=== PATIENT | male | born 1965 | race African-American/Black ===

== ENCOUNTER 2016-06-06 13:41 | Inpatient (IN) | payer OTHER ==
[2016-06-06 16:05] VITALS: BMI 21.7
--- NOTE | 2016-06-06 16:39 | HP ---
CIWA Score - CIWA Score Nausea/Vomitin Muscle Tremors: 3 Anxiety: 3 Agitation: 3 Paroxysmal Sweats: 2 Orientation: 0-Oriented Tacttile Disturbances: 2-Mild Itch/Numbness/Burn Auditory Disturbances: 2-Mild Harshness/Frighten Visual Disturbances: 2-Mild Sensitivity Headache: 2-Mild CIWA-Ar Total Score: 22 Admission ROS [facility] - HPI Chief Complaint: i need help to stop drinking alcohol and cocaine Allergies/Adverse Reactions: Allergies Allergy/AdvReac Type Severity Reaction Status Date / Time No Known Allergies Allergy Verified 06/06/16 16:55 History of Present Illness: this 50 year old male with alcohol and cocaine dependence,withdrawal symptom, last detox 04/24/16 to 04/27/16 [facility] not completed syncope previous admissions before 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 at [facility] [place] no significant period of sobriety - Ebola screening Have you traveled outside of the country in the last 21 days: No Have you had contact with anyone from an Ebola affected area: No Have you been sick,other than usual withdrawal symptoms: No Do you have a fever: No - Review of Systems Constitutional: Malaise, Night Sweats, Changes in sleep EENT: reports: Nose Congestion, Other (s/p excision and skin graft for squamoous cell carcinoma of nasal area right recurrence) Respiratory: reports: No Symptoms reported Cardiac: reports: No Symptoms Reported GI: reports: Diarrhea, Nausea, Vomiting, Abdominal cramping : reports: No Symptoms Reported Musculoskeletal: reports: Back Pain, Muscle Pain Integumentary: reports: Dryness Endocrine: reports: No Symptoms Reported Hematology: reports: No Symptoms Reported Psychiatric: reports: No Sypmtoms Reported Patient History - Patient Medical History Hx Anemia: No Hx Asthma: No Hx Chronic Obstructive Pulmonary Disease (COPD): No Hx Cancer: Yes (nasal squamous cell right nasal area s/p sugery and skin graft) Hx Cardiac Disorders: No Hx Congestive Heart Failure: No Hx Hypertension: No Hx Hypercholesterolemia: No Hx Pacemaker: No HX Cerebrovascular Accident: No Hx Seizures: No Hx Diabetes: No Hx Gastrointestinal Disorders: No Hx Liver Disease: No Hx Genitourinary Disorders: No Hx Sexually Transmitted Disorders: No Hx Renal Disease (ESRD): No Hx Thyroid Disease: No Hx Human Immunodeficiency Virus (HIV): No (last 04/25/16 negative) Hx Hepatitis C: No Hx Depression: No Hx Suicide Attempt: No Hx Bipolar Disorder: No Hx Schizophrenia: No Other Medical History: no suicidal,no homicidal - Patient Surgical History Past Surgical History: Yes Hx Neurologic Surgery: No Hx Cataract Extraction: No Hx Cardiac Surgery: No Hx Lung Surgery: No Hx Breast Surgery: No Hx Breast Biopsy: No Hx Abdominal Surgery: No Hx Appendectomy: No Hx Cholecystectomy: No Hx Genitourinary Surgery: No Hx Section: No Hx Orthopedic Surgery: No Other Surgical History: Ca of nose. Tumor removed in 2006 with skin graft Anesthesia Reaction: No - PPD History Documented Results: Positive w/o proof Results: positive PPD PPD to be Administered?: No - Smoking Cessation Smoking history: Current every day smoker Have you smoked in the past 12 months: Yes Aproximately how many cigarettes per day: 20 Hx Chewing Tobacco Use: No Initiated information on smoking cessation: Yes 'Breaking Loose' booklet given: 06/06/16 - Substance & Tx. History Hx Alcohol Use: Yes Hx Substance Use: Yes Substance Use Type: Alcohol, Cocaine Hx Substance Use Treatment: Yes ([facility] 04/24/16 to 04/27/16) - Substances Abused Alcohol Route: Oral Frequency: Daily Amount used: 05/27 VODKA/2 OF 6 PACKS OF 12 OZS OF BEER Age of first use: 17 Date of Last Use: 06/05/16 Cocaine Route: Smoking Frequency: Daily Amount used: 60$ Age of first use: 23 Date of Last Use: 06/05/16 Family Disease History - Family Disease History Family Disease History: Heart Disease: Grandparent, Other: Father (ALCOHOL, ) Admission Physical Exam [facility] - Vital Signs Vital Signs: Vital Signs - 24 hr 06/06/16 16:03 Temperature 97.7 F Pulse Rate 60 Respiratory 20 Rate Blood Pressure 120/88 - Physical General Appearance: Yes: Moderate Distress, Tremorous, Irritable, Sweating, Anxious HEENTM: Yes: Nasal Congestion, Rhinorrhea, Other (SKN GRAFT RIGHT NASAL AREA) Respiratory: Yes: Lungs Clear Neck: Yes: Within Normal Limits Breast: Yes: Within Normal Limits Cardiology: Yes: Within Normal Limits, Regular Rhythm, Regular Rate, S1, S2 Abdominal: Yes: Within Normal Limits, Normal Bowel Sounds, Non Tender, Flat, Soft Genitourinary: Yes: Within Normal Limits Back: Yes: Muscle Spasm Musculoskeletal: Yes: Back pain, Muscle Pain Extremities: Yes: Tremors Neurological: Yes: pharmacy messenger II-XII NML intact, Fully Oriented, Alert, Motor Strength 5/5 Integumentary: Yes: Dry Lymphatic: Yes: Within Normal Limits - Diagnostic (1) Alcohol dependence with uncomplicated withdrawal Current Visit: No Status: Acute (2) Nicotine dependence Current Visit: No Status: Chronic Qualifiers: Nicotine product type: cigarettes Substance use status: uncomplicated Qualified Code(s): F17.210 - Nicotine dependence, cigarettes, uncomplicated (3) Cocaine dependence Current Visit: Yes Status: Acute (4) Weight loss Current Visit: Yes Status: Acute (5) Squamous cell carcinoma of nose Current Visit: Yes Status: Acute (6) Syncope Current Visit: Yes Status: Acute (7) Positive PPD Current Visit: Yes Status: Acute Cleared for Admission [facility] - Detox or Rehab [facility] Level of Care: Medically Managed Detox Regimen/Protocol: Librium [facility] Breath Alcohol Content Breath Alcohol Content: 0 Vital Signs - Vital Signs Vital Signs Refused: No Temperature: 97.7 F Temperature Source: Oral Pulse Rate: 60 Respiratory Rate: 20 Blood Pressure: 120/88 BP Location: Left Arm - Height Height: 5 ft 7 in - Weight Weight: 139 lb Weight Measurement Method: Standing Scale Body Mass Index (BMI): 21.7 Urine Drug Screen - Test Device Lot Number: [id number] Expiration Date: 11/19/17 - Control Is Test Valid: Yes - Results Drug Screen Negative: No Urine Drug Screen Results: BALAJI-Cocaine, BZO-Benzodiazepines
[2016-06-06] MEDS ORDERED: P-EPHED 60MG/TRIPROLIDI 2.5MG TABLET PO PRN (16:55)
[2016-06-06] MEDS ORDERED: guaiFENesin/D-METHORPHAN HB 10 ML UNIT-DOSE CUPS PO PRN (16:55)
[2016-06-06] MEDS ORDERED: chlordiazePOXIDE HCL 25 MG CAPSULE PO PRN (16:55)
[2016-06-06] MEDS ORDERED: NICOTINE POLACRILEX 2 MG GUM BC PRN (16:55)
[2016-06-06] MEDS ORDERED: chlordiazePOXIDE HCL 25 MG CAPSULE PO ONE (16:55)
[2016-06-06] MEDS ORDERED: LOPERAMIDE HCL 2 MG CAPSULE PO PRN (16:55)
[2016-06-06] MEDS ORDERED: ACETAMINOPHEN 325 MG TABLET (FP) PO PRN (16:55)
[2016-06-06] MEDS ORDERED: MAGNESIUM HYDROX 2400MG/30ML ORAL SUSPENSION 30 ML CUP PO PRN (16:55)
[2016-06-06] MEDS ORDERED: IBUPROFEN 400 MG TABLET (FP) PO PRN (16:55)
[2016-06-06] MEDS ORDERED: MAGNESIUM CITRATE 300 ML BOTTLE PO PRN (16:55)
[2016-06-06] MEDS ORDERED: hydrOXYzine PAMOATE 50 MG CAPSULE (FP) PO PRN (16:55)
[2016-06-06] MEDS ORDERED: MENTHOL/PHENOL 1 EACH UD MM PRN (16:55)
--- NOTE | 2016-06-06 17:24 | PN ---
[facility] Progress Note Note: ANDERS RODRIGEZ
[2016-06-06] MEDS: chlordiazePOXIDE HCL 25 MG CAPSULE PO SCH ×2 (17:45→22:21)
[2016-06-06 19:58] LABS: URINE APPEARANCE CLEAR; URINE BILIRUBIN NEGATIVE (NEGATIVE); URINE BLOOD NEGATIVE (NEGATIVE); URINE COLOR LTYELLOW; URINE GLUCOSE (UA) NEGATIVE (NEGATIVE); URINE KETONE NEGATIVE (NEGATIVE); URINE NITRITE NEGATIVE (NEGATIVE); URINE PROTEIN NEGATIVE (NEGATIVE); URINE UROBILINOGEN NEGATIVE E.U./dl (0.2-1.0)
[2016-06-06 19:59] LABS: URINE LEUK ESTERASE TRACE (NEGATIVE)
[2016-06-06 20:00] LABS: URINE MUCUS RARE; URINE RBC 1 /hpf (0-3); URINE WBC 7 /hpf (3-5)
[2016-06-06] MEDS: THIAMINE HCL 100 MG TABLET (FP) PO SCH (22:21)
[2016-06-06] MEDS: diphenhydrAMINE HCL 50 MG CAPSULE PO PRN (22:23)
[2016-06-07] MEDS: chlordiazePOXIDE HCL 25 MG CAPSULE PO SCH ×4 (05:31→22:26)
--- NOTE | 2016-06-07 09:23 | EKG ---
Test Reason : Blood Pressure : / mmHG Vent. Rate : 056 BPM Atrial Rate : 056 BPM P-R Int : 156 ms QRS Dur : 098 ms QT Int : 428 ms P-R-T Axes : 060 077 063 degrees QTc Int : 413 ms SINUS BRADYCARDIA MODERATE VOLTAGE CRITERIA FOR LVH, MAY BE NORMAL VARIANT BORDERLINE ECG NO PREVIOUS ECGS AVAILABLE Confirmed by VILMA COELHO MD ([id number]) on 06/07/2016 9:23:00 AM Referred By: Confirmed By:VILMA COELHO MD
[2016-06-07 10:06] LABS: ALBUMIN 3.2 g/dl (3.4-5.0); ALK PHOS 87 U/L (45-117); ANION GAP 8 (8-16); BILIRUBIN,TOTAL 0.8 mg/dL (0.2-1.0); CALCIUM 8.4 mg/dL (8.5-10.1); CO2 25 mmol/L (21-32); CREATININE 0.9 mg/dL (0.7-1.3); GLUCOSE,RANDOM 81 mg/dL (74-106); SGOT/AST 44 U/L (15-37); SGPT/ALT 32 U/L (12-78); TOT PROT 6.1 g/dl (6.4-8.2)
[2016-06-07] MEDS: PRENATAL VITAMINS W/ FOLIC ACID TABLET (FP) PO SCH (10:19)
[2016-06-07 10:36] LABS: MCH 33.1 pg (25.7-33.7); MCHC 33.2 g/dl (32.0-35.9); MEAN CELL VOLUME 99.4 fl (80-96); MEAN PLT VOLUME 8.3 fl (7.5-11.1); PLATELET COUNT 275 K/MM3 (134-434); RDW 12.6 % (11.9-15.9); WHITE BLOOD COUNT 9.8 K/mm3 (4.0-10.0)
--- NOTE | 2016-06-07 14:09 | PN ---
S CIWA - CIWA Score Nausea/Vomitin-No Nausea/No Vomiting Muscle Tremors: 3 Anxiety: 3 Agitation: 4-Moderately Restless Paroxysmal Sweats: 3 Orientation: 0-Oriented Tacttile Disturbances: 0-None Auditory Disturbances: 0-None Visual Disturbances: 0-None Headache: 0-None Present CIWA-Ar Total Score: 13 BHS Progress Note (SOAP) Subjective: ANXIETY.TREMORS,SWEATING,INTERRUPTED SLEEP,RESTLESS. Objective: 06/07/16 14:07 Vital Signs - 8 hr 06/07/16 06/07/16 06:45 10:34 Temperature 97.6 F 97.4 F L Pulse Rate 83 78 Respiratory 18 18 Rate Blood Pressure 149/87 114/76 Laboratory Tests 06/06/16 06/07/16 06/07/16 19:30 08:00 08:00 WBC 9.8 RBC 4.02 Hgb 13.3 Hct 40.0 MCV 99.4 H MCHC 33.2 RDW 12.6 Plt Count 275 MPV 8.3 Sodium 143 Potassium 3.4 L Chloride 110 H Carbon Dioxide 25 Anion Gap 8 BUN 10 Creatinine 0.9 Creat Clearance w eGFR > 60 Random Glucose 81 D Calcium 8.4 L Total Bilirubin 0.8 D AST 44 H ALT 32 Alkaline Phosphatase 87 D Total Protein 6.1 L Albumin 3.2 L Urine Color Ltyellow Urine Appearance Clear Urine pH 6.0 Ur Specific [place] 1.019 Urine Protein Negative Urine Glucose (UA) Negative Urine Ketones Negative Urine Blood Negative Urine Nitrite Negative Urine Bilirubin Negative Urine Urobilinogen Negative Ur Leukocyte Esterase Trace H Urine RBC 1 Urine WBC 7 Ur Epithelial Cells Rare Urine Mucus Rare RPR Titer 06/07/16 08:00 WBC RBC Hgb Hct MCV MCHC RDW Plt Count MPV Sodium Potassium Chloride Carbon Dioxide Anion Gap BUN Creatinine Creat Clearance w eGFR Random Glucose Calcium Total Bilirubin AST ALT Alkaline Phosphatase Total Protein Albumin Urine Color Urine Appearance Urine pH Ur Specific [place] Urine Protein Urine Glucose (UA) Urine Ketones Urine Blood Urine Nitrite Urine Bilirubin Urine Urobilinogen Ur Leukocyte Esterase Urine RBC Urine WBC Ur Epithelial Cells Urine Mucus RPR Titer Nonreactive LABS NOTED,K-DUR ORDERED Assessment: 06/07/16 14:08 WITHDRAWAL SX. HYPOKALEMIA Plan: CONTINUE DETOX
[2016-06-07] MEDS ORDERED: POTASSIUM CHLORIDE TABS 20 MEQ TABLET.ER (FP) PO ONE (14:23)
[2016-06-07] MEDS: MAG HYDROX/AL HYDROX/SIMETH 30 ML UNIT-DOSE CUP PO PRN (16:40)
[2016-06-07] MEDS: diphenhydrAMINE HCL 50 MG CAPSULE PO PRN (22:27)
[2016-06-07] MEDS: THIAMINE HCL 100 MG TABLET (FP) PO SCH (22:27)
[2016-06-07] MEDS: POTASSIUM CHLORIDE TABS 20 MEQ TABLET.ER (FP) PO SCH (22:27)
[2016-06-08] MEDS: chlordiazePOXIDE HCL 25 MG CAPSULE PO SCH ×2 (05:36→10:44)
[2016-06-08 09:31] VITALS: PULSE 70
--- NOTE | 2016-06-08 10:18 | PN ---
[facility] CIWA - CIWA Score Nausea/Vomitin-No Nausea/No Vomiting Muscle Tremors: 4-Moderate,w/Arms Extend Anxiety: 4-Mod. Anxious/Guarded Agitation: 4-Moderately Restless Paroxysmal Sweats: 1-Minimal Palms Moist Orientation: 0-Oriented Tacttile Disturbances: 3-Moderate Itch/Numb/Burn Auditory Disturbances: 0-None Visual Disturbances: 0-None Headache: 0-None Present CIWA-Ar Total Score: 16 S Progress Note (SOAP) Subjective: ANXIETY,CHILLS,FATIGUE. Objective: 06/08/16 10:17 Vital Signs Temperature 97.0 F L 06/08/16 09:31 Pulse Rate 70 06/08/16 09:31 Respiratory Rate 20 06/08/16 09:31 Blood Pressure 104/75 06/08/16 09:31 O2 Sat by Pulse Oximetry (%) Laboratory Last Values WBC 9.8 K/mm3 (4.0-10.0) 06/07/16 08:00 RBC 4.02 M/mm3 (4.00-5.60) 06/07/16 08:00 Hgb 13.3 GM/dL (11.7-16.9) 06/07/16 08:00 Hct 40.0 % (35.4-49) 06/07/16 08:00 MCV 99.4 fl (80-96) H 06/07/16 08:00 MCHC 33.2 g/dl (32.0-35.9) 06/07/16 08:00 RDW 12.6 % (11.9-15.9) 06/07/16 08:00 Plt Count 275 K/MM3 (134-434) 06/07/16 08:00 MPV 8.3 fl (7.5-11.1) 06/07/16 08:00 Sodium 143 mmol/L (136-145) 06/07/16 08:00 Potassium 3.4 mmol/L (3.5-5.1) L 06/07/16 08:00 Chloride 110 mmol/L (98-107) H 06/07/16 08:00 Carbon Dioxide 25 mmol/L (21-32) 06/07/16 08:00 Anion Gap 8 (8-16) 06/07/16 08:00 BUN 10 mg/dL (7-18) 06/07/16 08:00 Creatinine 0.9 mg/dL (0.7-1.3) 06/07/16 08:00 Creat Clearance w eGFR > 60 (>60) 06/07/16 08:00 Random Glucose 81 mg/dL (74-106) D 06/07/16 08:00 Calcium 8.4 mg/dL (8.5-10.1) L 06/07/16 08:00 Total Bilirubin 0.8 mg/dL (0.2-1.0) D 06/07/16 08:00 AST 44 U/L (15-37) H 06/07/16 08:00 ALT 32 U/L (12-78) 06/07/16 08:00 Alkaline Phosphatase 87 U/L (45-117) D 06/07/16 08:00 Total Protein 6.1 g/dl (6.4-8.2) L 06/07/16 08:00 Albumin 3.2 g/dl (3.4-5.0) L 06/07/16 08:00 Urine Color Ltyellow 06/06/16 19:30 Urine Appearance Clear 06/06/16 19:30 Urine pH 6.0 (5.0-8.0) 06/06/16 19:30 Ur Specific [place] 1.019 (1.001-1.035) 06/06/16 19:30 Urine Protein Negative (NEGATIVE) 06/06/16 19:30 Urine Glucose (UA) Negative (NEGATIVE) 06/06/16 19:30 Urine Ketones Negative (NEGATIVE) 06/06/16 19:30 Urine Blood Negative (NEGATIVE) 06/06/16 19:30 Urine Nitrite Negative (NEGATIVE) 06/06/16 19:30 Urine Bilirubin Negative (NEGATIVE) 06/06/16 19:30 Urine Urobilinogen Negative E.U./dl (0.2-1.0) 06/06/16 19:30 Ur Leukocyte Esterase Trace (NEGATIVE) H 06/06/16 19:30 Urine RBC 1 /hpf (0-3) 06/06/16 19:30 Urine WBC 7 /hpf (3-5) 06/06/16 19:30 Ur Epithelial Cells Rare /hpf (FEW) 06/06/16 19:30 Urine Mucus Rare 06/06/16 19:30 RPR Titer Nonreactive (NONREACTIVE) 06/07/16 08:00 LABS NOTED Assessment: 06/08/16 10:18 WITHDRAWAL SX BORDERLINE HYPOKALEMIA Plan: CONTINUE DETOX
[2016-06-08] MEDS: PRENATAL VITAMINS W/ FOLIC ACID TABLET (FP) PO SCH (10:43)
[2016-06-08] MEDS: POTASSIUM CHLORIDE TABS 20 MEQ TABLET.ER (FP) PO SCH (10:44)
[2016-06-08] MEDS: MAG HYDROX/AL HYDROX/SIMETH 30 ML UNIT-DOSE CUP PO PRN (10:55)
[2016-06-08 14:10] VITALS: BP 108/73; TEMP 95.9
--- NOTE | 2016-06-08 15:20 | DS ---
[facility] Detox Discharge Summary Admission Date: 06/06/16 Discharge Date: 06/08/16 - History Present History: Alcohol Dependence, Cocaine Dependence Additional Comments: PT DECLINED TO COMPLETE DETOX STATING HIS BEST FRIEND AND IS TOMORROW AND HAS TO LEAVE RIGHT AWAY TODAY. PT DECLINED ALL SUGGESTIONS/ COUNSELLING. ALERT O X 3. NAD. PT SIGNED OUT AMA. Pertinent Past History: SQUAMOUS CELL CARCINOMA OF NOSE; S/P SX - Physical Exam Results Vital Signs: Vital Signs Temperature 95.9 F L 06/08/16 14:06 Pulse Rate 70 06/08/16 14:06 Respiratory Rate 18 06/08/16 14:06 Blood Pressure 108/73 06/08/16 14:06 O2 Sat by Pulse Oximetry (%) Pertinent Admission Physical Exam Findings: WITHDRAWAL SX - Medication Discharge Medications: Ambulatory Orders NK [No Known Home Medication] 04/24/16 - Diagnosis (1) Cocaine dependence Status: Acute Qualifiers: Substance use status: uncomplicated Qualified Code(s): F14.20 - Cocaine dependence, uncomplicated (2) Positive PPD Status: Chronic (3) Squamous cell carcinoma of nose Status: Resolved (4) Syncope Status: Suspected Qualifiers: Syncope type: unspecified Qualified Code(s): R55 - Syncope and collapse (5) Alcohol dependence with uncomplicated withdrawal Status: Acute (6) Nicotine dependence Status: Chronic Qualifiers: Nicotine product type: cigarettes Substance use status: uncomplicated Qualified Code(s): F17.210 - Nicotine dependence, cigarettes, uncomplicated - AMA Did Patient Leave Against Medical Advice: Yes (AMA)
[2016-06-08] MEDS ORDERED: chlordiazePOXIDE 5 MG CAPSULE PO SCH (17:00)
[2016-06-09] MEDS ORDERED: chlordiazePOXIDE HCL 10 MG CAPSULE PO SCH (17:00)
== END 2016-06-08 12:07 | disposition left against medical advice (07) | DRG 770 ==
LOC: YASAS 13:41 → Y3N 16:43
PROVIDERS: ADMIT Internal Medicine; ATTEND Internal Medicine
PROC: HZ2ZZZZ Detoxification Services for Substance Abuse Treatment (ICD-10-PCS; principal; 2016-06-06)
DX: F10.230 Alcohol dependence with withdrawal, uncomplicated (principal); F14.20 Cocaine dependence, uncomplicated; F17.210 Nicotine dependence, cigarettes, uncomplicated; E87.6 Hypokalemia; R76.11 Nonspecific reaction to tuberculin skin test without active tuberculosis; Z85.828 Personal history of other malignant neoplasm of skin; Z86.79 Personal history of other diseases of the circulatory system; Z87.898 Personal history of other specified conditions
CPT/HCPCS: 36415; 71020-TC; 80053; 81003; 81015; 85027; 86593; 93005; 93010

== ENCOUNTER 2018-04-27 13:21 | Inpatient (IN) | payer OTHER ==
[2018-04-27 13:48] VITALS: BMI 22.2
--- NOTE | 2018-04-27 15:19 | HP ---
CIWA Score Nausea/Vomitin Muscle Tremors: 1-None Visible, but [place] Anxiety: 3 Agitation: 3 Paroxysmal Sweats: 2 Orientation: 0-Oriented Tacttile Disturbances: 0-None Auditory Disturbances: 0-None Visual Disturbances: 0-None Headache: 0-None Present CIWA-Ar Total Score: 12 - Admission Criteria [facility] Guidelines: Admission for Medically Managed Detox: Requires at least one of the followin. CIWA greater than 12 2. Seizures within the past 24 hours 3. Delirium tremens within the past 24 hours 4. Hallucinations within the past 24 hours 5. Acute intervention needed for co occurring medical disorder 6. Acute intervention needed for co occurring psychiatric disorder 7. Severe withdrawal that cannot be handled at a lower level of care (continued vomiting, continued diarrhea, abnormal vital signs) requiring intravenous medication and/or fluids 8. Admission ROS [facility] Chief Complaint: ETOH WITHDRAWAL SX Allergies/Adverse Reactions: Allergies Allergy/AdvReac Type Severity Reaction Status Date / Time No Known Allergies Allergy Verified 06/06/16 16:55 History of Present Illness: PATIENT PRESENTS WITH ETOH WITHDRAWAL SX AND CRACK/COCAINE DEPENDENCE. PATIENT ADMITTED TO DETOX THIS YEAR AT [facility] IN 12/2017. PATIENT STARTED DRINKING AT AGE 18, DRINKS 12 BEERS AND 1 PINT OF VODKA DAILY. ALSO SMOKES 100 DOLLARS OF CRACK/DAY. LAST TIME HE USED BOTH SUBSTANCES WAS 3AM THIS MORNING. PATIENT DENIES SEIZURES, FALLS. +BLACKOUTS AND DRINKS UPON AWAKENING. PATIENT PMH INCLUDES NASAL CANCER IN 2006. DENIES SI/HI AND SUICIDE ATTEMPTS. Exam Limitations: No Limitations - Ebola screening Have you traveled outside of the country in the last 21 days: No Have you had contact with anyone from an Ebola affected area: No Have you been sick,other than usual withdrawal symptoms: No Do you have a fever: No - Review of Systems Constitutional: Chills, Night Sweats, Unexplained wgt Loss EENT: reports: Recent change in vision Respiratory: reports: No Symptoms reported Cardiac: reports: No Symptoms Reported GI: reports: Diarrhea, Poor Fluid Intake, Abdominal cramping : reports: No Symptoms Reported Musculoskeletal: reports: No Symptoms Reported Integumentary: reports: Sweating Neuro: reports: Numbness, Tingling, Tremors Endocrine: reports: Unexplained Weight Loss Hematology: reports: No Symptoms Reported Psychiatric: reports: Orientated x3 Patient History - Patient Medical History Hx Anemia: No Hx Asthma: No Hx Chronic Obstructive Pulmonary Disease (COPD): No Hx Cancer: Yes (nasal squamous cell right nasal area s/p sugery and skin graft) Hx Cardiac Disorders: No Hx Congestive Heart Failure: No Hx Hypertension: No Hx Hypercholesterolemia: No Hx Pacemaker: No HX Cerebrovascular Accident: No Hx Seizures: No Hx Dementia: No Hx Diabetes: No Hx Gastrointestinal Disorders: No Hx Liver Disease: No Hx Genitourinary Disorders: No Hx Sexually Transmitted Disorders: No Hx Renal Disease (ESRD): No Hx Thyroid Disease: No Hx Human Immunodeficiency Virus (HIV): No (last 04/25/16 negative) Hx Hepatitis C: No Hx Depression: No Hx Suicide Attempt: No Hx Bipolar Disorder: No Hx Schizophrenia: No - Patient Surgical History Past Surgical History: Yes Hx Neurologic Surgery: No Hx Cataract Extraction: No Hx Cardiac Surgery: No Hx Lung Surgery: No Hx Breast Surgery: No Hx Breast Biopsy: No Hx Abdominal Surgery: No Hx Appendectomy: No Hx Cholecystectomy: No Hx Genitourinary Surgery: No Hx Orthopedic Surgery: No Other Surgical History: Ca of nose. Tumor removed in 2006 with skin graft Anesthesia Reaction: No - PPD History Previous Implant?: Yes Results: positive PPD PPD to be Administered?: No - Smoking Cessation Smoking history: Current every day smoker Have you smoked in the past 12 months: Yes Aproximately how many cigarettes per day: 20 Hx Chewing Tobacco Use: No Initiated information on smoking cessation: Yes 'Breaking Loose' booklet given: 04/27/18 - Substance & Tx. History Hx Alcohol Use: Yes Hx Substance Use: Yes Substance Use Type: Alcohol, Cocaine - Substances Abused Alcohol Route: Oral Frequency: Daily Amount used: 1 PINT, 12 BEERS Age of first use: 18 Date of Last Use: 04/27/18 Cocaine Route: Smoking Frequency: Daily Amount used: 100/DAY Age of first use: 18 Date of Last Use: 04/27/18 Family Disease History - Family Disease History Family Disease History: Heart Disease: Grandparent, Other: Father (ALCOHOL, ) Admission Physical Exam [facility] - Vital Signs Vital Signs: Vital Signs - 24 hr 04/27/18 13:47 Temperature 98.0 F Pulse Rate 81 Respiratory 18 Rate Blood Pressure 118/74 - Physical General Appearance: Yes: Appropriately Dressed, Alcohol on Breath, Tremorous, Sweating, Anxious HEENTM: Yes: Hearing grossly Normal, Normal ENT Inspection, Normocephalic, Normal Voice, BUDDY, Pharynx Normal Respiratory: Yes: Chest Non-Tender, Lungs Clear, Normal Breath Sounds, No Respiratory Distress, No Accessory Muscle Use Neck: Yes: No masses,lesions,Nodules, Supple, Trachea in good position Breast: Yes: Breast Exam Deferred Cardiology: Yes: Regular Rhythm, Regular Rate, S1, S2 Abdominal: Yes: Normal Bowel Sounds, Non Tender, Soft Genitourinary: Yes: Within Normal Limits Back: Yes: Normal Inspection Musculoskeletal: Yes: full range of Motion, Gait Steady Extremities: Yes: Normal Inspection, Normal Range of Motion, Non-Tender, Tremors Neurological: Yes: microfilm equipment inspector II-XII NML intact, Fully Oriented, Alert, Motor Strength 5/5, Normal Mood/Affect, Normal Response Integumentary: Yes: Normal Color, Dry, Warm Lymphatic: Yes: Within Normal Limits - Diagnostic (1) Alcohol dependence with uncomplicated withdrawal Current Visit: No Status: Acute (2) Cocaine abuse Current Visit: No Status: Chronic (3) Nicotine dependence Current Visit: Yes Status: Chronic Qualifiers: Nicotine product type: cigarettes Substance use status: uncomplicated Qualified Code(s): F17.210 - Nicotine dependence, cigarettes, uncomplicated (4) Positive PPD Current Visit: Yes Status: Chronic Cleared for Admission [facility] - Detox or Rehab [facility] Level of Care: Medically Managed Detox Regimen/Protocol: Librium [facility] Breath Alcohol Content Breath Alcohol Content: 0.004 Vital Signs - Vital Signs Vital Signs Refused: No Temperature: 98.0 F Temperature Source: Oral Pulse Rate: 81 Respiratory Rate: 18 Blood Pressure: 118/74 BP Location: Left Arm Blood Pressure Position: Sitting - Height Height: 5 ft 6 in - Weight Weight: 138 lb Weight Measurement Method: Standing Scale Body Mass Index (BMI): 22.2 - Bowel Function Bowel Movement: Yes Urine Drug Screen - Results Drug Screen Negative: No Urine Drug Screen Results: BALAJI-Cocaine
[2018-04-27] MEDS ORDERED: P-EPHED 60MG/TRIPROLIDI 2.5MG TABLET PO PRN (15:31)
[2018-04-27] MEDS ORDERED: MAGNESIUM HYDROX 2400MG/30ML ORAL SUSPENSION 30 ML CUP PO PRN (15:31)
[2018-04-27] MEDS ORDERED: ACETAMINOPHEN 325 MG TABLET (FP) PO PRN (15:31)
[2018-04-27] MEDS ORDERED: hydrOXYzine PAMOATE 50 MG CAPSULE (FP) PO PRN (15:31)
[2018-04-27] MEDS ORDERED: LOPERAMIDE HCL 2 MG CAPSULE PO PRN (15:31)
[2018-04-27] MEDS ORDERED: MAG HYDROX/AL HYDROX/SIMETH 30 ML UNIT-DOSE CUP PO PRN (15:31)
[2018-04-27] MEDS ORDERED: NICOTINE POLACRILEX 2 MG GUM BC PRN (15:31)
[2018-04-27] MEDS ORDERED: IBUPROFEN 400 MG TABLET (FP) PO PRN (15:31)
[2018-04-27] MEDS ORDERED: MENTHOL/PHENOL 1 EACH UD MM PRN (15:31)
[2018-04-27] MEDS ORDERED: MAGNESIUM CITRATE 300 ML BOTTLE PO PRN (15:31)
[2018-04-27] MEDS ORDERED: guaiFENesin/D-METHORPHAN HB 10 ML UNIT-DOSE CUPS PO PRN (15:31)
[2018-04-27] MEDS ORDERED: chlordiazePOXIDE HCL 25 MG CAPSULE PO PRN (15:33)
[2018-04-27] MEDS: chlordiazePOXIDE HCL 25 MG CAPSULE PO SCH ×2 (17:51→22:20)
[2018-04-27] MEDS ORDERED: MELATONIN 5 MG TABLETS PO PRN (22:00)
[2018-04-27] MEDS: THIAMINE HCL 100 MG TABLET (FP) PO SCH (22:19)
[2018-04-27 22:47] LABS: URINE APPEARANCE SLCLOUDY; URINE BILIRUBIN NEGATIVE (<2.0 mg/dL); URINE COLOR YELLOW; URINE GLUCOSE (UA) NEGATIVE (NEGATIVE); URINE KETONE NEGATIVE (NEGATIVE); URINE LEUK ESTERASE 3+ (NEGATIVE); URINE NITRITE NEGATIVE (NEGATIVE); URINE PROTEIN NEGATIVE (NEGATIVE); URINE UROBILINOGEN NEGATIVE mg/dL (0.2-1.0)
[2018-04-27 22:52] LABS: EPI CELLS RARE /HPF (FEW); URINE MUCUS RARE
[2018-04-28] MEDS: chlordiazePOXIDE HCL 25 MG CAPSULE PO SCH ×4 (07:10→22:27)
[2018-04-28 10:38] LABS: HEMATOCRIT 39.7 % (35.4-49); HEMOGLOBIN 13.7 GM/dL (11.7-16.9); MCH 33.5 pg (25.7-33.7); MCHC 34.4 g/dl (32.0-35.9); MEAN CELL VOLUME 97.6 fl (80-96); MEAN PLT VOLUME 8.2 fl (7.5-11.1); PLATELET COUNT 252 K/MM3 (134-434); RBC 4.07 M/mm3 (4.00-5.60); RDW 12.5 % (11.9-15.9); WHITE BLOOD COUNT 7.5 K/mm3 (4.0-10.0)
[2018-04-28 11:18] LABS: ALBUMIN 3.2 g/dl (3.4-5.0); ALK PHOS 68 U/L (45-117); ANION GAP 9 MMOL/L (8-16); BILIRUBIN,TOTAL 0.6 mg/dL (0.2-1); BLOOD UREA NITROGEN 13 mg/dL (7-18); CALCIUM 8.4 mg/dL (8.5-10.1); CHLORIDE 110 mmol/L (98-107); CO2 23 mmol/L (21-32); CREATININE 0.9 mg/dL (0.55-1.3); GLUCOSE,RANDOM 82 mg/dL (74-106); POTASSIUM 3.8 mmol/L (3.5-5.1); SGOT/AST 34 U/L (15-37); SGPT/ALT 33 U/L (13-61); SODIUM 142 mmol/L (136-145); TOT PROT 6.2 g/dl (6.4-8.2)
--- NOTE | 2018-04-28 11:22 | PN ---
S CIWA - CIWA Score Nausea/Vomitin-No Nausea/No Vomiting Muscle Tremors: 4-Moderate,w/Arms Extend Anxiety: 3 Agitation: 3 Paroxysmal Sweats: 3 Orientation: 0-Oriented Tacttile Disturbances: 0-None Auditory Disturbances: 0-None Visual Disturbances: 0-None Headache: 0-None Present CIWA-Ar Total Score: 13 BHS Progress Note (SOAP) Subjective: tired sweats chills irritable Objective: 04/28/18 11:21 Vital Signs Temperature 97.5 F L 04/28/18 06:00 Pulse Rate 65 04/28/18 06:00 Respiratory Rate 18 04/28/18 06:00 Blood Pressure 122/56 L 04/28/18 06:00 O2 Sat by Pulse Oximetry (%) Laboratory Tests 04/27/18 04/28/18 04/28/18 12:45 07:00 07:00 WBC 7.5 RBC 4.07 Hgb 13.7 Hct 39.7 MCV 97.6 H MCH 33.5 MCHC 34.4 RDW 12.5 Plt Count 252 MPV 8.2 Sodium 142 Potassium 3.8 Chloride 110 H Carbon Dioxide 23 Anion Gap 9 BUN 13 Creatinine 0.9 Creat Clearance w eGFR > 60 Random Glucose 82 Calcium 8.4 L Total Bilirubin 0.6 AST 34 ALT 33 Alkaline Phosphatase 68 Total Protein 6.2 L Albumin 3.2 L Urine Color Yellow Urine Appearance Slcloudy Urine pH 5.0 Ur Specific [place] 1.021 Urine Protein Negative Urine Glucose (UA) Negative Urine Ketones Negative Urine Blood Negative Urine Nitrite Negative Urine Bilirubin Negative Urine Urobilinogen Negative Ur Leukocyte Esterase 3+ H D Urine WBC (Auto) 25 Urine RBC (Auto) 2 Ur Epithelial Cells Rare Urine Mucus Rare aaox3 ambulating no acute distress repeat u/a Assessment: 04/28/18 11:21 withdrawal sx Plan: continue detox increase fluids repeated u/a pending
--- NOTE | 2018-04-28 11:39 | EKG ---
Test Reason : Blood Pressure : / mmHG Vent. Rate : 075 BPM Atrial Rate : 075 BPM P-R Int : 170 ms QRS Dur : 098 ms QT Int : 378 ms P-R-T Axes : 071 074 062 degrees QTc Int : 422 ms NORMAL SINUS RHYTHM NORMAL ECG WHEN COMPARED WITH ECG OF 06-JUN-2016 17:54, NO SIGNIFICANT CHANGE WAS FOUND Confirmed by DIANELYS ONEAL MD ([id number]) on 04/28/2018 11:38:29 AM Referred By: Confirmed By:DIANELYS ONEAL MD
[2018-04-28] MEDS: PRENATAL VITAMINS W/ FOLIC ACID TABLET (FP) PO SCH (12:46)
[2018-04-28] MEDS: NICOTINE 21 MG/24 HOURS TOPICAL PATCH TD SCH (12:46)
[2018-04-28] MEDS: THIAMINE HCL 100 MG TABLET (FP) PO SCH (22:27)
[2018-04-29 06:59] VITALS: TEMP 97.7
[2018-04-29] MEDS: chlordiazePOXIDE HCL 25 MG CAPSULE PO SCH ×2 (07:39→11:39)
[2018-04-29 09:28] VITALS: BP 109/78; PULSE 68
[2018-04-29] MEDS: NICOTINE 21 MG/24 HOURS TOPICAL PATCH TD SCH (11:39)
[2018-04-29] MEDS: PRENATAL VITAMINS W/ FOLIC ACID TABLET (FP) PO SCH (11:39)
--- NOTE | 2018-04-29 14:41 | DS ---
[facility] Detox Discharge Summary Admission Date: 04/27/18 Discharge Date: 04/29/18 - History Present History: Alcohol Dependence Pertinent Past History: Nasal basal cell carcinoma - Physical Exam Results Vital Signs: Vital Signs Temperature 97.7 F 04/29/18 09:27 Pulse Rate 68 04/29/18 09:27 Respiratory Rate 16 04/29/18 09:27 Blood Pressure 109/78 04/29/18 09:27 O2 Sat by Pulse Oximetry (%) Pertinent Admission Physical Exam Findings: Withdrawal sx Laboratory Last Values WBC 7.5 K/mm3 (4.0-10.0) 04/28/18 07:00 RBC 4.07 M/mm3 (4.00-5.60) 04/28/18 07:00 Hgb 13.7 GM/dL (11.7-16.9) 04/28/18 07:00 Hct 39.7 % (35.4-49) 04/28/18 07:00 MCV 97.6 fl (80-96) H 04/28/18 07:00 MCH 33.5 pg (25.7-33.7) 04/28/18 07:00 MCHC 34.4 g/dl (32.0-35.9) 04/28/18 07:00 RDW 12.5 % (11.9-15.9) 04/28/18 07:00 Plt Count 252 K/MM3 (134-434) 04/28/18 07:00 MPV 8.2 fl (7.5-11.1) 04/28/18 07:00 Sodium 142 mmol/L (136-145) 04/28/18 07:00 Potassium 3.8 mmol/L (3.5-5.1) 04/28/18 07:00 Chloride 110 mmol/L (98-107) H 04/28/18 07:00 Carbon Dioxide 23 mmol/L (21-32) 04/28/18 07:00 Anion Gap 9 MMOL/L (8-16) 04/28/18 07:00 BUN 13 mg/dL (7-18) 04/28/18 07:00 Creatinine 0.9 mg/dL (0.55-1.3) 04/28/18 07:00 Creat Clearance w eGFR > 60 (>60) 04/28/18 07:00 Random Glucose 82 mg/dL (74-106) 04/28/18 07:00 Calcium 8.4 mg/dL (8.5-10.1) L 04/28/18 07:00 Total Bilirubin 0.6 mg/dL (0.2-1) 04/28/18 07:00 AST 34 U/L (15-37) 04/28/18 07:00 ALT 33 U/L (13-61) 04/28/18 07:00 Alkaline Phosphatase 68 U/L (45-117) 04/28/18 07:00 Total Protein 6.2 g/dl (6.4-8.2) L 04/28/18 07:00 Albumin 3.2 g/dl (3.4-5.0) L 04/28/18 07:00 Urine Color Yellow 04/27/18 12:45 Urine Appearance Slcloudy 04/27/18 12:45 Urine pH 5.0 (5.0-8.0) 04/27/18 12:45 Ur Specific Sesser 1.021 (1.010-1.035) 04/27/18 12:45 Urine Protein Negative (NEGATIVE) 04/27/18 12:45 Urine Glucose (UA) Negative (NEGATIVE) 04/27/18 12:45 Urine Ketones Negative (NEGATIVE) 04/27/18 12:45 Urine Blood Negative (NEGATIVE) 04/27/18 12:45 Urine Nitrite Negative (NEGATIVE) 04/27/18 12:45 Urine Bilirubin Negative (<2.0 mg/dL) 04/27/18 12:45 Urine Urobilinogen Negative mg/dL (0.2-1.0) 04/27/18 12:45 Ur Leukocyte Esterase 3+ (NEGATIVE) H D 04/27/18 12:45 Urine WBC (Auto) 25 /hpf (3-5) 04/27/18 12:45 Urine RBC (Auto) 2 /hpf (0-3) 04/27/18 12:45 Ur Epithelial Cells Rare /HPF (FEW) 04/27/18 12:45 Urine Mucus Rare 04/27/18 12:45 RPR Titer Nonreactive (NONREACTIVE) 04/28/18 07:00 Labs noted - Medication Discharge Medications: Ambulatory Orders NK [No Known Home Medication] 04/24/16 - Diagnosis (1) Nicotine dependence Status: Chronic Qualifiers: Nicotine product type: cigarettes Substance use status: uncomplicated Qualified Code(s): F17.210 - Nicotine dependence, cigarettes, uncomplicated (2) Alcohol dependence with uncomplicated withdrawal Status: Acute (3) Cocaine dependence Status: Acute Qualifiers: Substance use status: uncomplicated Qualified Code(s): F14.20 - Cocaine dependence, uncomplicated - AMA Did Patient Leave Against Medical Advice: Yes
[2018-04-29] MEDS ORDERED: chlordiazePOXIDE 5 MG CAPSULE PO SCH (17:00)
[2018-04-30] MEDS ORDERED: chlordiazePOXIDE HCL 10 MG CAPSULE PO SCH (17:00)
== END 2018-04-29 10:40 | disposition left against medical advice (07) | DRG 770 ==
LOC: YASAS 13:21 → Y6N 16:45
PROC: HZ2ZZZZ Detoxification Services for Substance Abuse Treatment (ICD-10-PCS; principal; 2018-04-27)
DX: F10.230 Alcohol dependence with withdrawal, uncomplicated (principal); F14.20 Cocaine dependence, uncomplicated; F17.213 Nicotine dependence, cigarettes, with withdrawal; R76.11 Nonspecific reaction to tuberculin skin test without active tuberculosis; Z85.828 Personal history of other malignant neoplasm of skin; Z94.5 Skin transplant status
CPT/HCPCS: 36415; 71046-TC-FY; 80053; 81003; 81015; 85027; 86593; 93005; 93010

== ENCOUNTER 2022-08-17 12:52 | Inpatient (IN) | payer OTHER ==
[2022-08-17 13:39] VITALS: BMI 19.7
[2022-08-17] MEDS ORDERED: BENZONATATE 200 MG CAPSULE PO PRN (14:27)
[2022-08-17] MEDS ORDERED: ACETAMINOPHEN 325 MG TABLET (FP) PO PRN (14:27)
[2022-08-17] MEDS ORDERED: IBUPROFEN 600 MG TABLET (FP) PO PRN (14:27)
[2022-08-17] MEDS ORDERED: LOPERAMIDE HCL 2 MG CAPSULE PO PRN (14:27)
[2022-08-17] MEDS ORDERED: MAGNESIUM HYDROX 2400MG/30ML ORAL SUSPENSION 30 ML CUP PO PRN (14:27)
[2022-08-17] MEDS ORDERED: NICOTINE POLACRILEX 2 MG GUM BUC PRN (14:27)
[2022-08-17] MEDS ORDERED: ONDANSETRON *ODT* 4 MG TABLET SL PRN (14:27)
[2022-08-17] MEDS ORDERED: guaiFENesin 600 MG TABLET.ER (FP) PO PRN (14:27)
[2022-08-17] MEDS ORDERED: DICYCLOMINE HCL 10 MG CAPSULE PO PRN (14:27)
[2022-08-17] MEDS ORDERED: BISMUTH SUBSALICYLATE 262 MG/15 ML BTL PO PRN (14:27)
[2022-08-17] MEDS ORDERED: POLYETHYLENE GLYCOL (HEALTHYLAX) 3350 17 GM PACKET PO PRN (14:27)
[2022-08-17] MEDS ORDERED: NICOTINE 10 MG CARTRIDGE (INHALER) IH PRN (14:27)
[2022-08-17] MEDS ORDERED: BENZOCAINE/MENTHOL (CHLORASEPTIC ) LOZENGE MM PRN (14:27)
[2022-08-17] MEDS ORDERED: MAG HYDROX/AL HYDROX/SIMETH 30 ML UNIT-DOSE CUP PO PRN (14:27)
[2022-08-17] MEDS ORDERED: NALOXONE HCL (KLOXXADO) 8 MG SPRAY NS PRN (14:27)
[2022-08-17] MEDS ORDERED: NALOXONE HCL 0.4 MG/ML VIAL IM PRN (14:27)
[2022-08-17] MEDS ORDERED: hydrOXYzine PAMOATE 25 MG CAPSULE (FP) PO PRN (14:27)
[2022-08-17] MEDS ORDERED: METHOCARBAMOL 500 MG TABLET PO PRN (14:27)
[2022-08-17] MEDS ORDERED: IBUPROFEN 400 MG TABLET (FP) PO PRN (14:27)
[2022-08-17] MEDS ORDERED: THIAMINE HCL 100 MG TABLET (FP) PO SCH (22:00)
[2022-08-17] MEDS ORDERED: MELATONIN 5 MG TABLETS PO SCH (22:00)
[2022-08-18] MEDS ORDERED: PRENATAL VITAMINS W/ FOLIC ACID TABLET (FP) PO SCH (10:00)
[2022-08-18 10:09] VITALS: BP 129/82; PULSE 74; RESP 17; TEMP 97.5
[2022-08-18 11:35] LABS: ALBUMIN 3.4 g/dl (3.4-5.0); CALCIUM 8.7 mg/dL (8.5-10.1)
[2022-08-18 11:36] LABS: BLOOD UREA NITROGEN 13.6 mg/dL (7-18)
[2022-08-18 11:38] LABS: CREATININE 0.8 mg/dL (0.55-1.3); HEMATOCRIT 37.6 % (35.4-49); HEMOGLOBIN 12.8 GM/dL (11.7-16.9); MCH 33.8 pg (25.7-33.7); MCHC 34.1 g/dl (32.0-35.9); MEAN CELL VOLUME 99.1 fl (80-96); MEAN PLT VOLUME 7.7 fl (7.5-11.1); PLATELET COUNT 228 10^3/uL (134-434); RDW 12.4 % (11.9-15.9); WHITE BLOOD COUNT 8.8 K/mm3 (4.0-10.0)
[2022-08-18 11:40] LABS: BILIRUBIN,TOTAL 0.9 mg/dL (0.2-1); TOT PROT 6.4 g/dl (6.4-8.2)
== END 2022-08-18 11:20 | disposition home or self-care (01) | DRG 774 ==
LOC: YASAS 12:52 → Y3N 14:38
PROVIDERS: ADMIT Allergy & Immunology; ATTEND Surgery
PROC: HZ2ZZZZ Detoxification Services for Substance Abuse Treatment (ICD-10-PCS; principal; 2022-08-17)
DX: F10.20 Alcohol dependence, uncomplicated (principal); F14.20 Cocaine dependence, uncomplicated; F17.210 Nicotine dependence, cigarettes, uncomplicated; Z85.22 Personal history of malignant neoplasm of nasal cavities, middle ear, and accessory sinuses
CPT/HCPCS: 36415; 80053; 85027; 86780; 87811; 93005; 93010; C9803-CS; U0003; U0005

== ENCOUNTER 2023-05-03 08:37 | Inpatient (IN) | payer OTHER ==
[2023-05-03 09:16] VITALS: BMI 19.7
[2023-05-03] MEDS ORDERED: LOPERAMIDE HCL 2 MG CAPSULE PO PRN (11:21)
[2023-05-03] MEDS ORDERED: IBUPROFEN 400 MG TABLET (FP) PO PRN (11:21)
[2023-05-03] MEDS ORDERED: MAGNESIUM HYDROX 2400MG/30ML ORAL SUSPENSION 30 ML CUP PO PRN (11:21)
[2023-05-03] MEDS ORDERED: POLYETHYLENE GLYCOL (HEALTHYLAX) 3350 17 GM PACKET PO PRN (11:21)
[2023-05-03] MEDS ORDERED: MAG HYDROX/AL HYDROX/SIMETH 30 ML UNIT-DOSE CUP PO PRN (11:21)
[2023-05-03] MEDS ORDERED: METHOCARBAMOL 500 MG TABLET PO PRN (11:21)
[2023-05-03] MEDS ORDERED: guaiFENesin 600 MG TABLET.ER (FP) PO PRN (11:21)
[2023-05-03] MEDS ORDERED: ACETAMINOPHEN 325 MG TABLET (FP) PO PRN (11:21)
[2023-05-03] MEDS ORDERED: NICOTINE POLACRILEX 4 MG GUM BUC PRN (11:21)
[2023-05-03] MEDS ORDERED: hydrOXYzine PAMOATE 25 MG CAPSULE (FP) PO PRN (11:21)
[2023-05-03] MEDS ORDERED: DICYCLOMINE HCL 10 MG CAPSULE PO PRN (11:21)
[2023-05-03] MEDS ORDERED: BENZOCAINE/MENTHOL (CHLORASEPTIC ) LOZENGE MM PRN (11:21)
[2023-05-03] MEDS ORDERED: IBUPROFEN 600 MG TABLET (FP) PO PRN (11:21)
[2023-05-03] MEDS ORDERED: BISMUTH SUBSALICYLATE 262 MG/15 ML BTL PO PRN (11:21)
[2023-05-03] MEDS ORDERED: BENZONATATE 200 MG CAPSULE PO PRN (11:21)
[2023-05-03] MEDS ORDERED: ONDANSETRON *ODT* 4 MG TABLET SL PRN (11:21)
[2023-05-03] MEDS ORDERED: THIAMINE HCL 100 MG TABLET (FP) PO SCH (22:00)
[2023-05-03] MEDS ORDERED: MELATONIN 5 MG TABLETS PO SCH (22:00)
[2023-05-04] MEDS ORDERED: PRENATAL VITAMINS W/ FOLIC ACID TABLET (FP) PO SCH (10:00)
[2023-05-04] MEDS ORDERED: chlordiazePOXIDE HCL 25 MG CAPSULE PO PRN (10:22)
[2023-05-04] MEDS ORDERED: chlordiazePOXIDE HCL 25 MG CAPSULE PO SCH (11:00)
[2023-05-04 11:44] LABS: POTASSIUM 4.2 mmol/L (3.5-5.1)
[2023-05-04 11:51] LABS: BLOOD UREA NITROGEN 13.7 mg/dL (7-18)
[2023-05-04 11:52] LABS: ALBUMIN 3.5 g/dl (3.4-5.0)
[2023-05-04 11:53] LABS: BILIRUBIN,TOTAL 0.6 mg/dL (0.2-1); CALCIUM 8.3 mg/dL (8.5-10.1); CREATININE 0.9 mg/dL (0.55-1.3); TOT PROT 6.9 g/dl (6.4-8.2)
[2023-05-04 12:03] LABS: HEMATOCRIT 36.7 % (35.4-49); HEMOGLOBIN 12.2 GM/dL (11.7-16.9); MCH 33.9 pg (25.7-33.7); MCHC 33.4 g/dl (32.0-35.9); MEAN CELL VOLUME 101.8 fl (80-96); MEAN PLT VOLUME 7.9 fl (7.5-11.1); PLATELET COUNT 247 10^3/uL (134-434); RBC 3.61 M/mm3 (4.00-5.60); RDW 12.6 % (11.9-15.9)
[2023-05-04 12:53] VITALS: BP 107/73; PULSE 53; RESP 18; TEMP 97.8
[2023-05-06] MEDS ORDERED: chlordiazePOXIDE HCL 25 MG CAPSULE PO SCH (05:00)
[2023-05-07] MEDS ORDERED: chlordiazePOXIDE HCL 10 MG CAPSULE PO PRN
[2023-05-07] MEDS ORDERED: chlordiazePOXIDE HCL 10 MG CAPSULE PO SCH (05:00)
[2023-05-08] MEDS ORDERED: chlordiazePOXIDE HCL 10 MG CAPSULE PO SCH (05:00)
[2023-05-09] MEDS ORDERED: chlordiazePOXIDE HCL 10 MG CAPSULE PO ONE (05:00)
== END 2023-05-04 17:02 | disposition left against medical advice (07) | DRG 770 ==
LOC: YASAS 08:37 → Y3N 12:03
PROVIDERS: ADMIT Allergy & Immunology; ATTEND Surgery
PROC: HZ2ZZZZ Detoxification Services for Substance Abuse Treatment (ICD-10-PCS; principal; 2023-05-03)
DX: F10.230 Alcohol dependence with withdrawal, uncomplicated (principal); F14.20 Cocaine dependence, uncomplicated; F17.210 Nicotine dependence, cigarettes, uncomplicated; Z85.828 Personal history of other malignant neoplasm of skin
CPT/HCPCS: 36415; 71046-TC-FY; 80053; 80307; 85027; 86780; 87635; 87811

== ENCOUNTER 2024-08-22 18:45 | Inpatient (IN) | payer OTHER ==
[2024-08-22 19:29] VITALS: BMI 21.7
[2024-08-22] MEDS ORDERED: hydrOXYzine PAMOATE 25 MG CAPSULE (FP) PO PRN (19:54)
[2024-08-22] MEDS ORDERED: IBUPROFEN 400 MG TABLET (FP) PO PRN (19:54)
[2024-08-22] MEDS ORDERED: NALOXONE (NARCAN) HCL 4 MG/0.1 ML SPRAY NS PRN (19:54)
[2024-08-22] MEDS ORDERED: MAG HYDROX/AL HYDROX/SIMETH 30 ML UNIT-DOSE CUP PO PRN (19:54)
[2024-08-22] MEDS ORDERED: P-EPHED 60MG/TRIPROLIDI 2.5MG TABLET PO PRN (19:54)
[2024-08-22] MEDS ORDERED: MAGNESIUM HYDROX 2400MG/30ML ORAL SUSPENSION 30 ML CUP PO PRN (19:54)
[2024-08-22] MEDS ORDERED: POLYETHYLENE GLYCOL (HEALTHYLAX) 3350 17 GM PACKET PO PRN (19:54)
[2024-08-22] MEDS ORDERED: NICOTINE POLACRILEX 2 MG LOZENGE BC PRN (19:54)
[2024-08-22] MEDS ORDERED: LOPERAMIDE HCL 2 MG CAPSULE PO PRN (19:54)
[2024-08-22] MEDS ORDERED: BENZOCAINE/MENTHOL (CHLORASEPTIC ) LOZENGE MM PRN (19:54)
[2024-08-22] MEDS ORDERED: BENZONATATE 200 MG CAPSULE PO PRN (19:54)
[2024-08-22] MEDS ORDERED: ACETAMINOPHEN 325 MG TABLET (FP) PO PRN (19:54)
[2024-08-22] MEDS ORDERED: NICOTINE POLACRILEX 2 MG GUM BUC PRN (19:54)
[2024-08-22] MEDS ORDERED: MELATONIN 5 MG TABLETS ONE (22:39)
[2024-08-22] MEDS ORDERED: IBUPROFEN 600 MG TABLET (FP) PO ONE (22:39)
[2024-08-22] MEDS: IBUPROFEN 600 MG TABLET (FP) PO PRN (22:41)
[2024-08-22] MEDS: THIAMINE 100 MG TABLET PO SCH (22:42)
[2024-08-22] MEDS: MELATONIN 5 MG TABLETS PO SCH (22:42)
[2024-08-22] MEDS: LIDOCAINE PATCH REMOVAL MC SCH (22:43)
[2024-08-22] MEDS ORDERED: TUBERCULIN PPD 5 TU/0.1ML SYRINGE (IN PATIENT USE ONLY) ID ONE (23:55)
[2024-08-23] MEDS: PRENATAL VITAMINS W/ FOLIC ACID TABLET (FP) PO SCH (10:55)
[2024-08-23] MEDS: LIDOCAINE 5% TOPICAL PATCH TP SCH (10:55)
[2024-08-23 11:14] LABS: CHLORIDE 108 mmol/L (98-107); POTASSIUM 3.6 mmol/L (3.5-5.1); SODIUM 138 mmol/L (136-145)
[2024-08-23 11:15] LABS: HEMOGLOBIN 12.2 g/dL (13.7-17.5); MCHC 32.1 g/dl (32.3-36.5); MEAN CELL VOLUME 97.2 fl (79.0-92.2); MEAN PLT VOLUME 9.4 fl (9.4-12.4); PLATELET COUNT 289 x10^3/uL (163-337)
[2024-08-23 11:18] LABS: ANION GAP 4 mmol/L (4-13); CALCIUM 8.7 mg/dL (8.5-10.1); CO2 26 mmol/L (21-32); GLUCOSE,RANDOM 84 mg/dL (74-106)
[2024-08-23 11:20] LABS: ALBUMIN 3.4 g/dl (3.4-5.0); BLOOD UREA NITROGEN 17.7 mg/dL (7-18)
[2024-08-23 11:21] LABS: SGOT/AST 30 U/L (15-37); SGPT/ALT 31 U/L (13-61)
[2024-08-23 11:22] LABS: CREATININE 0.7 mg/dL (0.55-1.3)
[2024-08-23 11:23] LABS: BILIRUBIN,TOTAL 0.6 mg/dL (0.2-1)
[2024-08-23 11:24] LABS: ALK PHOS 75 U/L (45-117)
[2024-08-23 11:25] LABS: TOT PROT 6.4 g/dl (6.4-8.2)
[2024-08-23 11:30] LABS: EPI CELLS 9 /uL (0-25.1); HYALINE CASTS 5 /uL (0-3.1); PH,URINE 5.5 (5.0-8.0); URINE APPEARANCE CLEAR; URINE BACTERIA 50 /uL (0-1359); URINE BILIRUBIN NEGATIVE (NEGATIVE); URINE COLOR YELLOW; URINE GLUCOSE (UA) TRACE (NEGATIVE); URINE KETONE 1+ (NEGATIVE); URINE LEUK ESTERASE 2+ (NEGATIVE); URINE NITRITE NEGATIVE (NEGATIVE); URINE PROTEIN TRACE (NEGATIVE); URINE RBC 24 /uL (0-23.9); URINE UROBILINOGEN 0.2 mg/dL (0.2-1.0); URINE WBC 675 /uL (0-25.8)
[2024-08-23 14:01] LABS: SYPHILIS W/ RPR CONF NON-REACTIVE (NONREACTIVE)
[2024-08-23 14:34] LABS: HCV DIAGNOSTIC IN-HOUSE W/RFLX NON-REACTIVE (NONREACTIVE)
[2024-08-24] MEDS: guaiFENesin 600 MG TABLET.ER (FP) PO PRN (06:32)
[2024-08-24] MEDS: METHOCARBAMOL 750 MG TABLET PO PRN (10:55)
[2024-08-24] MEDS: SULFAMETHOXAZOLE/TRIMETHOPRIM 800MG/160MG D.S. TABLET PO SCH (17:55)
[2024-08-24] MEDS: BACLOFEN 10 MG TABLET (FP) PO SCH (21:21)
[2024-08-24 22:53] LABS: URINE APPEARANCE CLEAR; URINE BILIRUBIN NEGATIVE (NEGATIVE); URINE COLOR YELLOW; URINE GLUCOSE (UA) NEGATIVE (NEGATIVE); URINE KETONE NEGATIVE (NEGATIVE); URINE LEUK ESTERASE NEGATIVE (NEGATIVE); URINE NITRITE NEGATIVE (NEGATIVE); URINE PROTEIN NEGATIVE (NEGATIVE); URINE UROBILINOGEN 0.2 mg/dL (0.2-1.0)
[2024-08-25] MEDS: LIDOCAINE 5% TOPICAL PATCH TP SCH (10:14)
[2024-08-27 05:51] VITALS: BP 122/78; PULSE 74; RESP 16; TEMP 97.5
== END 2024-08-27 11:31 | disposition left against medical advice (07) | DRG 770 ==
LOC: YASAS 18:45 → Y3W 22:43
PROVIDERS: ADMIT Psychiatry & Neurology Pain Medicine; ATTEND Psychiatry & Neurology Pain Medicine
PROC: HZ42ZZZ Group Counseling for Substance Abuse Treatment, Cognitive-Behavioral (ICD-10-PCS; principal; 2024-08-22)
DX: F10.20 Alcohol dependence, uncomplicated (principal); F14.20 Cocaine dependence, uncomplicated; F17.210 Nicotine dependence, cigarettes, uncomplicated; N39.0 Urinary tract infection, site not specified; Z86.11 Personal history of tuberculosis
CPT/HCPCS: 36415; 71045-TC-FY; 80053; 80305; 80307; 81003; 85027; 86780; 86803; 87086; 87811; 93005; 93010; J0475